=== PATIENT | female | born 1955 | race Two or more races ===

== ENCOUNTER 2020-02-28 05:40 | Day surgery (SDC) | payer MEDICARE, MEDICAID ==
--- NOTE | 2020-02-25 15:42 | Opthalmology H&P ---
Ophthalmology H&P H&P Chief Complaint: decreased vision in left eye HPI Vision Affects Ability to: read, manage personal affairs Past Ocular History: retinal problems HPI Narrative blurry vision Exam Visual Acuity: OD: counting fingers OS: counting fingers Tension: OD 10 OS 10 Eye Exam: normal OU: external exam, palpebral fissure-width, marginal reflex distance, levator function, corneas, anterior chambers, lens; findings: fundus exam - Vitreous Hemohrrage OU Assessment/Plan Treatment Plan: other - Pars plana vitrectomy with endolaser Goals of Treatment: improvement of vision, enhance quality of life Attestation Attestation The risks and benefits of the surgery as well as alternative procedures were explained to the patient in detail. Wilmar Gillis MD Feb 25, 2020 15:42
--- NOTE | 2020-02-25 15:43 | Pre-Procedure Note/Attestation ---
Pre-Procedure Note/Attestation Complete Prior to Procedure Planned Procedure: left Procedure Narrative: Pars plana vitrectomy with endolaser left eye Indications for Procedure Pre-Operative Diagnosis: Vitreous hemorrhage left eye Attestation I attest that I discussed the nature of the procedure; its benefits; risks and complications; and alternatives (and the risks and benefits of such al ternatives), prior to the procedure, with the patient (or the patient's legal commercial sales representative). I attest that, if there was a reasonable possibility of needing a blood transfusion, the patient (or the patient's legal commercial sales representative) was given the [facility] standardized written summary, pursuant to the [place] Blood Safety Act ([place] Health and Safety Code # 1645, as amended). I attest that I re-evaluated the patient just prior to the surgery and that there has been no change in the patient's H&P, except as documented below: Wilmar Gillis MD Feb 25, 2020 15:43
[~2020-02-28] VITALS: Ht 154.9 cm; Wt 68.5 kg
[2020-02-28] VITALS (8 sets, daily range): BP systolic 140–167; BP diastolic 72–91
[2020-02-28] MEDS ORDERED: JANUVIA50 MG ORAL (06:22)
[2020-02-28] MEDS ORDERED: VITAMIN D3 PO (06:22)
[2020-02-28] MEDS ORDERED: GLIPIZIDE5 MG ORAL (06:22)
[2020-02-28] MEDS ORDERED: VITAMIN D325 MC1 PO (06:22)
[2020-02-28] MEDS ORDERED: LOSARTAN POTASS25 MG ORAL (06:22)
[2020-02-28] MEDS ORDERED: AMLODIPINE BESYL5 MG ORAL (06:22)
[2020-02-28] MEDS ORDERED: ATORVASTATIN CA20 MG ORAL (06:22)
[2020-02-28] MEDS: Tropicamide 1% Opth 15ml Soln LEFT EYE SCH ×3 (06:30→06:48)
[2020-02-28] MEDS: Phenylephrine 10% Opth Soln 5ml LEFT EYE SCH ×3 (06:30→06:48)
[2020-02-28] MEDS: Tobramycin Op Soln 0.3% 5ml LEFT EYE SCH ×3 (06:30→06:47)
[2020-02-28] MEDS: Diclofenac Sod 0.1% Op Soln LEFT EYE SCH ×3 (06:31→06:48)
[2020-02-28] MEDS ORDERED: Tetracaine 0.5% Opth 4ml Soln LEFT EYE ONE (07:00)
[2020-02-28] MEDS ORDERED: Akten 3.5% 1ml Btl LEFT EYE ONE (07:00)
[2020-02-28] MEDS ORDERED: Proparacaine 0.5% Opth Soln 15ml LEFT EYE ONE (07:00)
[2020-02-28] MEDS ORDERED: Maxitrol Opth Oint 3.5gm ONE ×2 (07:00→07:04)
[2020-02-28] MEDS ORDERED: Kenalog-40 1ml Vial ONE (07:04)
[2020-02-28] MEDS ORDERED: Atropine Sulfate 3.5gm Oint ONE (07:05)
[2020-02-28] MEDS ORDERED: Hyaluronidase 150 units/ml vial ONE (07:06)
[2020-02-28] MEDS ORDERED: BSS 500ml btl ONE (07:06)
[2020-02-28] MEDS ORDERED: Bupivacaine 0.75% 30ml vial INJ ONE (07:06)
[2020-02-28] MEDS ORDERED: Sodium Hyaluronate 10 mg/ml 0.85ml ONE (07:06)
[2020-02-28] MEDS ORDERED: BSS 15ml BTL ONE (07:06)
[2020-02-28] MEDS ORDERED: Povidone-Iodine 5% opth solution ONE (07:07)
[2020-02-28] MEDS ORDERED: Lidocaine 2% MPF 5ml Vial INJ ONE (07:07)
[2020-02-28] MEDS ORDERED: EPINEPHrine 1mg/1ml Amp ONE (07:09)
[2020-02-28] MEDS ORDERED: LR 1000ml ONE ×2 (07:30)
[2020-02-28] MEDS ORDERED: Sterile Water Irrig 1000ml IRRIG ONE ×2 (07:30)
[2020-02-28] MEDS ORDERED: NS Irrig 1000ml ONE (07:30)
--- NOTE | 2020-02-28 07:39 | Anethesia Preoperative Eval ---
Anesthesia Pre-op PMH/ROS General Date of Evaluation: Feb 28, 2020 Time of Evaluation: 07:00 Anesthesiologist: orlin ASA Score: ASA 3 Mallampati Score Class I : Soft palate, uvula, fauces, pillars visible Class II: Soft palate, uvula, fauces visible Class III: Soft palate, base of uvula visible Class IV: Only hard plate visible Mallampati Classification: Class II Surgeon: whitley Diagnosis: hemorrage Surgical Procedure: vitrectomy Anesthesia History: none Family History: no anesthesia problems Allergies: Coded Allergies: No Known Allergies (Unverified , 02/23/20) Medications: see eMAR Patient NPO?: Yes NPO Date: Feb 28, 2020 NPO Time: 00:01 Past Medical History Cardiovascular: Reports: HTN Pulmonary: Denies: asthma, COPD, TARAS, other Gastrointestinal/Genitourinary: Denies: GERD, CRI, ESRD, other Neurologic/Psychiatric: Denies: dementia, CVA, depression/anxiety, TIA, other Endocrine: Reports: DM; Denies: hypothyroidism, steroids, other HEENT: Reports: cataract (L), cataract (R) Hematology/Immune: Denies: anemia, DVT, bleeding disorder, other Musculoskeletal/Integumentary: Denies: OA, RA, DJD, DDD, edema, other PSxH Narrative: leg surgery Anesthesia Pre-op Phys. Exam Physician Exam Last Vital Signs Date Time Temp Pulse Resp B/P (MAP) Pulse Ox O2 Delivery O2 Flow Rate FiO2 02/28/20 06:23 Room Air 02/28/20 06:16 97.4 72 18 160/72 100 Constitutional: NAD Neurologic: CN 2-12 intact Cardiovascular: RRR Respiratory: CTA Gastrointestinal: S/NT/ND Airway Exam Mallampati Classification 2 Mallampati Score: Class II MO: full Neck: flexible TMD: 2fb Teeth: loose Dentures: no upper, no lower Anesthesia Pre-op A/P Labs Chemistry Test 02/28/20 06:39 POC Whole Blood Glucose Pending Studies Pre-op Studies: EKG - sr Risk Assessment & Plan Plan: mac Status Change Before Surgery: No Pre-Antibiotics Drug: none Irish Burks CRNA Feb 28, 2020 07:39
[2020-02-28] MEDS ORDERED: Midazolam 2mg/2ml Inj ONE (07:44)
[2020-02-28] MEDS ORDERED: fentaNYL 100 mcg/2 mL IV ONE (07:44)
[2020-02-28] MEDS ORDERED: Lidocaine 1% MPF 10mg/ml 5ml ONE (08:02)
--- NOTE | 2020-02-28 08:53 | Immediate Post-Op Evaluation ---
Immediate Post-Op Evalulation Immediate Post-Op Evalulation Procedure: left eye vitrectomy Date of Evaluation: Feb 28, 2020 Time of Evaluation: 08:52 IV Fluids: 500 Blood Pressure Systolic: 167 Blood Pressure Diastolic: 90 Pulse Rate: 67 Respiratory Rate: 14 O2 Sat by Pulse Oximetry: 99 Temperature (Fahrenheit): 97.6 Nausea: No Vomiting: No Patient Status: awake, reacts, patent Hydration Status: adequate Drug: none JellyriIrish lovell CRNA Feb 28, 2020 08:52
--- NOTE | 2020-02-28 12:10 | 48 Hour Post Anesthesia Eval ---
Post Anesthesia Evaluation Procedure: left eye vitrectomy Date of Evaluation: Feb 28, 2020 Time of Evaluation: 12:10 Blood Pressure Systolic: 140 0: 76 Pulse Rate: 80 Respiratory Rate: 14 O2 Sat by Pulse Oximetry: 98 Airway: patent Nausea: No Vomiting: No Hydration Status: adequate Cardiopulmonary Status: stable Mental Status/LOC: patient returned to baseline Post-Anesthesia Complications: none Follow-up care needed: N/A Irish Burks CRNA Feb 28, 2020 12:10
[2020-02-28] MEDS ORDERED: Cyclopentolate 2% Opth Sol LEFT EYE ONE (17:45)
--- NOTE | 2020-02-29 09:41 | Brief Operative Note ---
Immediate Post Operative Note Operative Note Chief Complaint: Blurry vision Pre-op Diagnosis: Vitreous hemorrhage left eye Procedure: Pars plana vitrectomy with endolaser left eye Surgeon: Wilmar Gillis MD Anesthesiologist: Irish Burks CRNA Anesthesia: MAC Specimen: none Complications: none Condition: stable Fluids: LR Estimated Blood Loss: none Drains: none Implant(s) used?: No Wilmar Gillis MD Feb 29, 2020 09:41
--- NOTE | 2020-02-29 09:45 | Operative Note - PDOC ---
Operative Note Operative Note Chief Complaint: Blurry vision Pre-op Diagnosis: Vitreous hemorrhage left eye Procedure: Pars plana vitrectomy with endolaser left eye Surgeon: Wilmar Gillis MD Anesthesiologist: Irish Burks CRNA Anesthesia: MAC Specimen: none Complications: none Condition: stable Fluids: LR Estimated Blood Loss: none Drains: none Implant(s) used?: No Indications for Procedure Vitreous hemorrhage left eye Description of Procedure This patient has been complaining visually significant decreased vision in the left eye with the best corrected visual acuity of counting fingers at a four foot distance. The patient complains of difficulties in performing activities of daily living and wants to manage personal affairs with comfort and accuracy and see well enough to move with safety at home and outdoors. The risks, benefits and alternatives of the procedure were discussed with the patient in the office prior to scheduling surgery. All questions from the patient were answered after the surgical procedure was explained in detail. The risks of the procedure as explained to the patient include, but are not limited to, pain, infection, bleeding, loss of vision, retinal detachment, need for further surgery, double vision, etc. Alternative procedures were discussed which include, to do nothing or seek a second opinion. Informed consent for this procedure was obtained from the patient. The patient was referred to a primary care physician for a cardiopulmonary clearance prior to surgery, after proper evaluation was done patient was properly scheduled for outpatient surgery. The patient was brought to the operating room where the anesthesiologist established I.V. lines and cardiac monitoring leads. The patient was then prepped and draped in typical sterile fashion for ophthalmic surgery. An G 23 trocar infusion cannula was inserted in the inferotemporal quadrant, approximately 4 mm posterior to the limbus. The infusion cannula was confirmed to be in appropriate position prior to initiating infusion. The light pipe and the vitrector were inserted into the eye and a core vitrectomy was performed under wide field visualization. The vitrectomy instrument was used to engage the posterior vitreous hemorrhage. Once this was done, the posterior heme was dissected using the vitrectomy instrument. Vitreous dissection was then extended out to the periphery as far as safely possible.The peripheral retina endolaser photocoagulation was then applied. Good reaction was achieved. After adequate laser application was completed, indirect ophthalmoscopy was performed. The trocar was then removed. After this was done, all the wounds were reinspected, confirmed to be well sealed and the eye had an appropriate intraocular pressure. Antibiotic ointment was then placed in the eye. Then, the eye was patched in typical fashion for ophthalmologic surgery. The patient tolerated the procedure well and was transferred to the recovery room in good condition. Proper postoperative management was reviewed with the patient prior to discharge and advised to follow up the next day.. Wilmar Gillis MD Feb 29, 2020 09:45
== END 2020-02-28 09:35 | disposition home or self-care (01) ==
LOC: SUR 05:40
DX: H43.12 Vitreous hemorrhage, left eye (principal); I10 Essential (primary) hypertension; E11.9 Type 2 diabetes mellitus without complications
CPT/HCPCS: 67039; 82962; 94003; J0171; J2250; J2704; J3010; J3470; J3490; J7120; U0002; 94150